=== PATIENT | female | born 1970 | race Two or more races ===

== ENCOUNTER 2025-02-16 09:05 | Day surgery (SDC) | payer MEDICAID, SELFPAY ==
[2025-02-15 12:55] VITALS: BMI 40.6
[2025-02-16] VITALS (9 sets, daily range): BP systolic 103–126; BP diastolic 62–82; PULSE 70–79; RESP 12–18; TEMP 36.2–37; O2SAT 95–100; BMI 41.0
[2025-02-16] MEDS: RINGERS LACTATED 1000 ML 1,000 ML 125 ML IV (10:37)
[2025-02-16] MEDS: DiphenhydrAMINE INJ 50 MG/ML VIAL 25 MG IV (10:40)
[2025-02-16] MEDS: fentaNYL CIT INJ 50 mCg/ML AMP 2ML (ASD USE ONLY) IV (10:47)
[2025-02-16] MEDS: MIDAZOLAM INJ 1 MG/ML VIAL 2 ML (ASD USE ONLY) 2 MG IV (10:47)
== END 2025-02-16 11:31 | disposition home or self-care (01) ==
PROVIDERS: PCP Physician Assistant Medical; Referring Provider Surgery; Visit Provider Surgery
PROC: 0DBE8ZX Excision of Large Intestine, Via Natural or Artificial Opening Endoscopic, Diagnostic (ICD-10-PCS; CPT 45380; principal; 2025-02-16 09:30)
DX: Z12.11 Encounter for screening for malignant neoplasm of colon (principal); K64.8 Other hemorrhoids
CPT/HCPCS: 45378; 81025; J1200; J2250; J3010; J7120

== ENCOUNTER 2025-02-22 14:00 | Outpatient (AMB) | payer MEDICAID, SELFPAY ==
[2025-02-22 14:08] VITALS: BP 106/70; PULSE 75; RESP 18; TEMP 36.4; O2SAT 97; BMI 41.5
--- NOTE | 2025-02-22 14:08 | GSCOFFNT_ITS ---
Vital Signs - [facility] 02/22/25 14:08 Height 1.55 m Height Method Stated Weight 99.79 kg Weight Measurement Method Standing Scale BMI 41.5 BP 106/70 Blood Pressure Source Automatic Cuff Blood Pressure Location Left Upper Arm Position Sitting Respiration 18 Pulse 75 Pulse Source Monitor Temp 97.6 F Temp Source Temporal Artery Scan Pulse Oximetry (%) 97 Oxygen Delivery Method Room Air Med/Allergies Allergies & Medications Allergies Sulfa (Sulfonamide Antibiotics) Allergy (Verified 02/16/25 09:53) Rash MA Intake Visit Data Collection New Patient or Established: Established Patient (seen at [facility] within 3 years) Seen by Clinical Staff ONLY (RN/MA): No Reason for Visit:: colonoscopy result Pain Present Currently: No PCP or OBGYN visit in last 3 months: Yes Hx Now: No Do You Feel Safe at Home: Yes Authorities Contacted: N/A Smoking Status Smoking Status: Never smoker Immunization / Flu Flu Vaccine in the Last 12 Months: No Flu Vaccine Exclusion Criteria: Refused by Patient Past Medical History Past Medical History NEUROLOGIC: Negative Neurological Disorders or Seizures CARDIAC: Negative Cardiac Disorders or Congestive Heart Failure RESPIRATORY: Negative Chronic Obstructive Pulmonary Disease (COPD) GASTROINTESTINAL: Negative Gastrointestinal Disorders GENITOURINARY: Negative Genitourinary Disorders or Renal Disease ENDOCRINE: Positive Endocrine Disorders and Hyperthyroidism; Negative Diabetes Mellitus Type 1 or Diabetes Mellitus Type 2 HEMATOLOGIC: Negative Blood Disorders OTHER HISTORY: Negative Autoimmune Disease, Blood Transfusions, Blood Transfusion Reaction or Anesthesia Reactions Surgical History SURGICAL: Positive Tubal Ligation Social History SMOKING STATUS: Smoking status: Never smoker SECOND HAND EXPOSURE: second hand exposure: No ALCOHOL: Alcohol Intake: Never HOUSING: Housing: House HPI HPI Narrative 54F here for follow up of colonoscopy which was normal aside from hemorrhoids. Pt reports feeling well overall, she has dealt with constipation for a long time but feels it is somewhat better lately as her stools are soft and smooth. Pt states she drinks 2 bottles of water daily, is not having any symptoms from hemorrhoids ROS Review of Systems Systems Reviewed: All systems reviewed, normal except as documented Objective/Exam General General Appearance: alert, cooperative and well groomed Resp Respiratory exam: Absent respiratory distress Results Colonoscopy report reviewed Assessment & Plan Diagnosis / Problem List (1) Encounter to discuss colonoscopy results: Status: Acute Assessment & Plan: 54F s/p colonoscopy 01/2025 which was negative aside from hemorrhoids. I encouraged pt to increase water intake for goal of 2L per day and to then initiate metamucil fiber supplementation. I explained that her next colonoscopy is due in 10 years Plan: Follow up as needed Office Procedures GNS Level of Care Nursing/Assessment Patient Status: Established Patient Nursing Assessment/Reassesment: Medication Reconciliation, Update PMH in EMR and Vital Signs Coordination of Care: Complex Care and Chronic Disease 1-5, Consent,records obtained, informed consent, Education Simp Pt/Fam, Results/Orders obtained and Staff clarify orders Established Patient Charge Established Patient Point Assignment: 90 Established Patient Point Charge: EP Level 3 (80-115) Patient Portal Questionaires Social History Living Situation History Housing: House Tobacco History Smoking Status: Never smoker Second Hand Smoke Exposure: No Alcohol History Alcohol Intake: Never Domestic Abuse History Do You Feel Safe at Home: Yes Review of Systems Report any current symptoms Only answer those that you have currently: Past Medical History Past Medical History Have you ever been diagnosed with any of the following: Neurological Problems Seizures: No Cardiology Problems Congestive Heart Failure: No Respiratory Problems Chronic Obstructive Pulmonary Disease (COPD): No Genital/Urinary Problems Renal Disease: No Endocrine Problems Diabetes Mellitus Type 1: No Diabetes Mellitus Type 2: No Hyperthyroidism: Yes Other Problems Autoimmune Disease: No Blood Transfusions: No Blood Transfusion Reaction: No Anesthesia Reactions: No
== END 2025-02-22 15:10 | disposition home or self-care (01) ==
LOC: HODSRG 14:00
PROVIDERS: PCP Physician Assistant Medical; Referring Provider Physician Assistant Medical; Supervising Provider Surgery; Visit Provider Surgery
DX: Z71.2 Person consulting for explanation of examination or test findings (principal); K64.9 Unspecified hemorrhoids
CPT/HCPCS: 99213; G0463

== ENCOUNTER 2025-10-26 17:11 | Emergency (ER) | payer MEDICAID, SELFPAY ==
--- NOTE | 2025-10-26 17:25 | EKG_ITS ---
[facility] Test Date: 2025-10-26 Pat Name: EDY VELA Department: Room: - Gender: Female Scrapper: : 1970 Requested By: Dian Renae Order Number: [id number] Reading MD: Dian Renae Measurements Intervals [place] Rate: 71 P: 37 NE: 153 QRS: 32 QRSD: 83 T: 33 QT: 368 QTc: 402 Interpretive Statements SINUS RHYTHM INDETERMINATE AXIS LOW QRS VOLTAGE IN PRECORDIAL LEADS [QRS DEFLECTION < 1.0 mV IN CHEST LEADS] No previous ECG available for comparison /store/S0/[id number].pdf
[2025-10-26 17:37] VITALS: BP 122/82; PULSE 75; RESP 18; TEMP 36.9; O2SAT 97
--- NOTE | 2025-10-26 19:33 | XR_ITS ---
EXAMINATION: PA chest single view TECHNIQUE: Upright PA chest single view Date and time: October 26, 2025, 1936 hours INDICATIONS: Left chest pain shortness of breath today. FINDINGS: Normal heart size Lungs are clear. Osseous structures are intact IMPRESSION: No active disease
--- NOTE | 2025-10-26 19:33 | PD.EDRME ---
Rapid Medical Screening Exam E Arrival date/time: 10/26/25 17:11 55F with history of hypothyroidism presents to ED with 2 days of CP and SOB. Patient denies URI symptoms. Chief Complaint: Chest Pain Vital signs: Vital Signs Temperature 98.5 F 10/26/25 17:37 Pulse Rate 75 10/26/25 17:37 Respiratory Rate 18 10/26/25 17:37 Blood Pressure 122/82 10/26/25 17:37 Pulse Oximetry (%) 97 10/26/25 17:37 Oxygen Delivery Method Room Air 10/26/25 17:37 Exam: Clear lungs. Normal WOB. RRR. Clinical Impression: anxiety vs costochondritis vs ACS vs PE vs atypical CP
[2025-10-26 19:54] LABS: Basophils # (Auto) 0.1 Thou/mm3 (0.0-0.2); Basophils % (Auto) 1 % (0-2.5); Eosinophils # (Auto) 0.2 Thou/mm3 (0.0-0.5); Eosinophils % (Auto) 3 % (0-10); Hematocrit 38.9 % (36.0-46.0); Hemoglobin 12.9 g/dL (12.0-16.0); Immature Granulocytes Auto 0.01 Thou/mm3 (0.00-0.00); Lymphocytes # (Auto) 3.1 Thou/mm3 (1.0-4.8); Lymphocytes % (Auto) 37 % (10-50); Mean Corpuscular HGB Conc 33.2 g/dl (31.0-37.0); Mean Corpuscular Hemoglobin 31.5 pg (25.0-35.0); Mean Corpuscular Volume 95 fL (80-100); Monocytes # (Auto) 0.6 Thou/mm3 (0.0-0.8); Monocytes % (Auto) 7 % (0-12); Neutrophils # (Auto) 4.4 Thou/mm3 (1.8-7.7); Neutrophils % (Auto) 53 % (37-80); Nucleated Red Blood Cell # 0.00 Thou/mm3 (0.00-0.00); Nucleated Red Blood Cell % 0 /100 WBC (0); Platelet Count 302 Thou/mm3 (140-440); RDW Standard Deviation 45.9 fL (36.4-46.3); Red Blood Count 4.09 Miln/mm3 (4.00-5.20); White Blood Count 8.4 Thou/mm3 (3.6-11.0)
[2025-10-26 20:17] LABS: Alanine Aminotransferase 12 U/L (10-49); Albumin, Serum 4.9 gm/dL (3.5-5.0); Albumin/Globulin Ratio 1.6 (1.2-2.2); Alkaline Phosphatase 75 U/L (46-116); Anion Gap 10 (7-16); Aspartate Amino Transferase 21 U/L (0-34); BUN/Creatinine Ratio 14 Ratio (12-20); Bilirubin,Total 0.3 mg/dL (0.3-1.2); Blood Urea Nitrogen 11 mg/dL (9-23); Calcium 10.4 mg/dL (8.3-10.6); Calcium (Corrected) 10.4 mg/dL (8.5-10.1); Carbon Dioxide 27.2 mMol/L (20.0-31.0); Chloride 105 mMol/L (98-107); Creatinine (Component) 0.8 mg/dL (0.6-1.3); Globulin 3.0 gm/dL (2.3-3.5); Glucose 88 mg/dL (74-106); Osmolality,Calculated 281 (275-295); Potassium 4.8 mMol/L (3.4-5.1); Sodium 142 mMol/L (136-145); Total Protein 7.9 gm/dL (5.7-8.2); Troponin I < 0.002 ng/mL (0.0-0.045); eGFR > 60 See Note
[2025-10-27 00:48] VITALS: BP 136/77; PULSE 70; RESP 18; TEMP 36.5; O2SAT 99
[2025-10-27 01:05] VITALS: BMI 37.8
--- NOTE | 2025-10-27 02:18 | PD.EDCHEST ---
ED Chest Pain RME/HPI General Chief Complaint: Chest Pain Stated Complaint: LEFT SIDED CHEST PAIN Time Seen by Provider: 10/27/25 02:18 Arrival date/time: 10/26/25 17:11 RME / HPI RME / HPI narrative: 10/26/25 17:11 55F with history of hypothyroidism presents to ED with 2 days of CP and SOB. Patient denies URI symptoms. Dr. Reza?s Main ED Evaluation: 55yo female presents to the ED for a chief complaint of sharp left-sided chest pain. Patient states she was woken up from her sleep due to the pain. No radiation or migration. Patient denies any shortness of breath, cough, palpitation, fever, chills, or any other associated symptoms. Denies any tobacco use. Denies history of DM, HTN, or HLD. Denies any history of similar symptoms. Related Data Home Medications ?Medication ?Instructions ?Recorded ?Confirmed levothyroxine 25 mcg capsule 25 mcg PO QDAY 03/19/24 02/16/25 Allergies Allergy/AdvReac Type Severity Reaction Status Date / Time Sulfa (Sulfonamide Allergy Rash Verified 02/16/25 09:53 Antibiotics) Review of Systems Review of Systems Systems Reviewed: All systems reviewed, normal except as documented Past Medical History Past Medical History NEUROLOGIC: Negative Neurological Disorders or Seizures CARDIAC: Negative Cardiac Disorders or Congestive Heart Failure RESPIRATORY: Negative Chronic Obstructive Pulmonary Disease (COPD) GASTROINTESTINAL: Negative Gastrointestinal Disorders GENITOURINARY: Negative Genitourinary Disorders or Renal Disease MUSCULOSKELETAL: Negative Musculoskeletal Disorders ENDOCRINE: Positive Endocrine Disorders and Hyperthyroidism; Negative Diabetes Mellitus Type 1 or Diabetes Mellitus Type 2 HEMATOLOGIC: Negative Blood Disorders OTHER HISTORY: Negative Autoimmune Disease, Blood Transfusions, Blood Transfusion Reaction or Anesthesia Reactions Surgical History SURGICAL: Positive Tubal Ligation Social History SMOKING STATUS: Never smoker SECOND HAND EXPOSURE: No SUBSTANCE USE: does not use ED Exam Narrative Physical exam: Generally patient is alert and in no obvious distress, heart regular rate and rhythm, chest shows no wounds no crepitance no subcu air nontender to palpation, lungs clear to auscultation equal bilaterally, abdomen soft bowel sounds present nondistended nontender no palpable pulsatile mass, extremities show no peripheral edema Course Course Course Narrative: CXR is ordered for determining the etiology of chest pain. Quality Measures none Orders Category Date Time Status EKG (ED ONLY) *Do not use* NOW Care 10/26/25 17:25 Completed EKG (ED Only) Stat Exams 10/26/25 17:25 Draft XR chest 1V portable Stat Exams 10/26/25 19:33 Completed CBC Stat Lab 10/26/25 19:38 Completed Comprehensive Metabolic Panel Stat Lab 10/26/25 19:38 Completed Troponin I Stat Lab 10/26/25 19:38 Completed Vital Signs Vital signs: Vital Signs Temperature 98.5 F 10/26/25 17:37 Pulse Rate 75 10/26/25 17:37 Respiratory Rate 18 10/26/25 17:37 Blood Pressure 122/82 10/26/25 17:37 Pulse Oximetry (%) 97 10/26/25 17:37 Oxygen Delivery Method Room Air 10/26/25 17:37 Chest Pain MDM Narrative MDM Narrative:: Scribe Attestation: 10/27/25 - Rena Navarro am scribing for and in the presence of Dr. Reza. EKG is nonischemic. Troponin is not elevated. Chest x-ray is normal. Heart score is 1. Patient is chest pain-free and will be discharged to follow-up with primary care for further treatment and evaluation as needed. She is to return to the emergency room as needed or if condition worsens. I interpreted all labs. Patient data External records reviewed:: [facility] previous records (Per chart review, patient was seen here on 05/01/24 for lumbar strain.) Clinical information provided by:: patient Social determinants that could affect healthcare access:: none Patient has the following chronic illnesses:: hypothyroidism How is presenting disease/condition affected by chronic disease/condition?: uneffected by Evaluation data The following diagnostics were reviewed and interpreted by me:: lab results, radiology exam(s) and EKG tracing(s) Lab and/or radiology exams considered but not ordered:: none Interpretation Summary: [facility] Report Signed Patient: EDY VELA. Record#: [id number] Birthdate: 1970 Age/Sex: 55 / F Location: [facility] Attending Dr: Ordering Physician: Rojelio Almendarez PA-C Date of Service: 10/26/25 Procedure(s): XR chest 1V portable Accession Number(s): [id number] cc: Mili Blackmon PA-C; Beau Hill MD; Rojelio Almendarez PA-C~ EXAMINATION: PA chest single view TECHNIQUE: Upright PA chest single view Date and time: October 26, 2025, 1936 hours INDICATIONS: Left chest pain shortness of breath today. FINDINGS: Normal heart size Lungs are clear. Osseous structures are intact IMPRESSION: No active disease Dictated By: Beau Hill MD Signed By: <Electronically signed by Beau Hill MD in OV> 10/26/25 0634 Medications / Prescriptions Medications or Prescriptions considered but not ordered:: none Medication administrations:: none Consultations Consultation(s) initiated? (list below): No Diagnosis Chest Pain Differential Diagnosis: other (See MDM) Most likely diagnosis given after review of the tests above:: see clinical impression below Admission Indicated Admission indicated?: not indicated Admission Request Was there a request for admission?: No Disposition Plan Disposition Plan: Discharge Discharge Attestation Discharge Attestation: The patient and all family members were given an opportunity to ask questions and understood the discharge instructions. Discharge instructions specifically effects, indications for sooner follow up or return to the emergency department, and the expected course of current diagnosis. Patient condition: Stable Discharge Plan Plan Patient Disposition: HOME (Self Care) Prescriptions/Referrals Prescriptions/Med Rec: No Action levothyroxine 25 mcg capsule 25 mcg PO QDAY Referrals: Mili Blackmon PA-C [Primary Care Provider] - In 1 week Problem List Clinical Impression: Chest pain Patient/Caregiver Discharge Instructions Education Materials: ED Chest Pain, Uncertain Cause Additional Instructions: Follow-up with your doctor as needed for further treatment and evaluation. Return to ER as needed or if condition worsens. Print Language: Moldovan Stand Alone Forms: [employer] Award Info., Patient Portal Info Letter
[2025-10-27 02:34] VITALS: PULSE 62; RESP 18; TEMP 36.3; O2SAT 100
== END 2025-10-27 02:36 | disposition home or self-care (01) ==
PROVIDERS: Physician Assistant; Emergency Provider Emergency Medicine; PCP Physician Assistant Medical
DX: R07.89 Other chest pain (principal); R06.02 Shortness of breath; R94.31 Abnormal electrocardiogram [ECG] [EKG]
CPT/HCPCS: 36415; 71045; 80053; 84484; 85025; 93005; 99283